=== PATIENT | male | born 1950 | race Hispanic/Latino ===

== ENCOUNTER → 2018-03-29 | Outpatient (CLI) | payer MEDICARE ==
--- NOTE | 2018-03-29 12:01 | Diagnostic Imaging Report ---
EXAM: US ABDOMEN COMPLETE INDICATION: Hepatitis C COMPARISON: None TECHNIQUE: Transverse and longitudinal caba scale and color doppler sonographic images of the upper abdomen were obtained. FINDINGS: LIVER Measures 13.9 cm in the right midclavicular line. Increased echogenicity of the liver with normal contour, no masses. SPLEEN 9.1 cm in maximum diameter. Normal echogenicity, no masses. GALLBLADDER Cholelithiasis. No gallbladder wall thickening, distension, or pericholecystic fluid. Negative reported sonographic Bryan's sign. BILE DUCTS No intra nor extra-hepatic biliary dilation. Common bile duct measures 0.5 cm PANCREAS: Limited evaluation of the pancreas. RIGHT KIDNEY: 10.2 cm Echogenicity: Normal Collecting System: No hydronephrosis Stones: None Cyst/Mass: None LEFT KIDNEY: 9.7 cm Echogenicity: Normal Collecting System: No hydronephrosis Stones: None Cyst/Mass: None VESSELS: Aorta: Visualized portions are within normal size limits Inferior Vena Cava: Visualized portions are normal Main Portal Vein: 0.8 cm, normal size with hepatopetal flow. FREE FLUID: None IMPRESSION: Cholelithiasis without sonographic evidence of cholecystitis. Hepatic steatosis. Signed by: Dr. Alli Farnsworth MD on 03/29/2018 11:57 AM
== END ==
LOC: US 09:15
PROVIDERS: ATTEND Internal Medicine Gastroenterology
DX: B18.2 Chronic viral hepatitis C (principal); Z68.1 Body mass index [BMI] 19.9 or less, adult; Z71.3 Dietary counseling and surveillance
CPT/HCPCS: 76700

== ENCOUNTER 2020-03-20 02:48 | Emergency (ER) | payer SELFPAY ==
[~2020-03-20] VITALS: Ht 167.6 cm; Wt 54.4 kg
[2020-03-20 05:04] VITALS: BP 116/77
== END 2020-03-20 05:13 | disposition home or self-care (01) ==
LOC: ER 03:00
DX: S01.01XA Laceration without foreign body of scalp, initial encounter (principal); W01.198A Fall on same level from slipping, tripping and stumbling with subsequent striking against other object, initial encounter; Y92.008 Other place in unspecified non-institutional (private) residence as the place of occurrence of the external cause
CPT/HCPCS: 70450; 72125; 99284